=== PATIENT | male | born 1960 | race Asian ===

== ENCOUNTER 2020-11-13 21:34 | Inpatient (IN) | payer OTHER, SELFPAY ==
--- NOTE | ~2020-11-13 | CT_ITS ---
EXAMINATION: CTA chest PE protocol DATE: 11/13/2020 22:49 BUILDING COMPONENTS DESIGNER INDICATION: Covid positive. Dyspnea. TECHNIQUE: Computed tomographic angiography (CTA) of the chest was performed with 100 mL Omnipaque-35 0 intravenous contrast. The dose-length product was 246.33 mGy-cm. Maximum intensity projection 3D-re constructions of the aorta and other arteries were constructed by the technologist on a separate work station. Automated exposure control and iterative reconstruction technique were employed. COMPARISON: Chest x-ray dated 11/13/2020 FINDINGS: The study is slightly limited by motion artifact. No central pulmonary embolism. Cardiomega ly. No evidence for aneurysm or dissection. No significant pleural or pericardial effusion. Mediastin al lymphadenopathy, likely reactive. Upper abdomen is unremarkable. Patchy bilateral airspace consoli dation involving all lobes, compatible with pneumonia. There are large blebs in the mid and lower hairs g zones. IMPRESSION: 1. Extensive patchy bilateral airspace consolidation involving all lobes, compatible with pneumonia. 2: No large central pulmonary embolism. Evaluation of peripheral pulmonary arteries limited by motio n. 3: Mediastinal lymphadenopathy, likely reactive. Reviewed, dictated and finalized at location A. DING COMPONENTS DESIGNER IMPRESSION: 1. Extensive patchy bilateral airspace consolidation involving all lobes, zain tible with pneumonia. 2: No large central pulmonary embolism. Evaluation of peripheral pulmonary art eries limited by motion. 3: Mediastinal lymphadenopathy, likely reactive.
--- NOTE | ~2020-11-13 | XR_ITS ---
XR chest 1V portable 11/13/2020 22:03 Indication: Covid positive. Shortness of breath. Procedure: AP portable chest Comparison: No prior studies for comparison. Findings: There is patchy bilateral airspace disease, compatible with pneumonia. No significant effus ion. Heart size normal. No pneumothorax. No acute osseous abnormality. Impression: 1: Patchy bilateral airspace disease, compatible with pneumonia. Reviewed, dictated and finalized at location A. OTIONS FIRM ACCOUNTS MANAGER Impression: 1: Patchy bilateral airspace disease, compatible with pneumonia.
--- NOTE | 2020-11-13 21:38 | PC.NURSE ---
Pt's ride contacts: [phone]
[2020-11-13 21:41] VITALS: BP 134/82; PULSE 96; RESP 24; TEMP 37.7; O2SAT 89
--- NOTE | 2020-11-13 21:46 | ECG_ITS ---
Measurements Intervals [place] Rate: 87 P: 50 [place]: 115 QRS: 16 QRSD: 89 T: 1 QT: 360 QTc: 435 Interpretive Statements SINUS RHYTHM WITH SHORT [place] INTERVAL BORDERLINE T WAVE ABNORMALITY- INFERIOR LEADS BASELINE ARTIFACT- I, III, AVR, AVL, AVF, V4-V5 BORDERLINE ECG Electronically Signed On 11-14-2020 7:18:43 ONBOARDING SPECIALIST by Eren Sam D.O.
[2020-11-13 21:57] VITALS: BP 128/80; PULSE 89; RESP 30; TEMP 37.8; O2SAT 91
[2020-11-13 22:12] LABS: Basophils Percent Auto 0.1 % (0.2-1.2); Hematocrit 39.6 % (42.0-52.0); Hemoglobin 13.4 g/dL (14.0-18.0); Immature Granulocyte Percent A 1.4 % (0-0.5); Lymphocytes Absolute Auto 1.54 K/mm3 (0.9-3.2); Lymphocytes Percent Auto 10.8 % (18.3-44.2); Mean Corpuscular HGB Conc 33.8 g/dl (32-36); Mean Corpuscular Hemoglobin 28.3 pg (26-34); Mean Corpuscular Volume 83.7 fl (80-100); Monocytes Absolute Auto 0.8 K/mm3 (0.1-0.6); Monocytes Percent Auto 5.3 % (2.6-8.5); Neutrophils Absolute Auto 11.8 K/mm3 (1.3-6.7); Neutrophils Percent Auto 82.4 % (45.5-73.1); Platelet Count Result 265 k/mm3 (150-375); Red Blood Count 4.73 M/mm3 (4.6-6.20); Red Cell Distribution Width 13.2 % (11.5-14.5); White Blood Count 14.3 K/mm3 (4.5-10.0)
[2020-11-13 22:17] LABS: Alveolar/Arterial O2 Gradient 56.4 mmHg; Base Excess ABG 0.6 mEq/l (+/-2.0); Fractional Inspired Oxygen 21 %; HCO3 ABG 22.4 mEq/l (22.0-26.0); Oxygen Content ABG 17.3 %vol (16.0-22.0); Oxygen Saturation ABG 93.6 % (95.0-100.0); Oxyhemoglobin 91.4 % THb (90.0-100.0); PCO2 ABG 28.2 mmHg (35.0-45.0); PO2 ABG 59.6 mmHg (80.0-100.0); PO2 FiO2 Ratio Arterial Blood 2.84 %; Total Hemoglobin 13.5 g/dL (12.0-18.0)
[2020-11-13 22:18] LABS: Device ROOM AIR; Modified Allen's Test Pass; Site Drawn LEFT RADIAL; pH ABG 7.518 (7.350-7.450)
[2020-11-13 22:24] LABS: D Dimer 1.45 ug/mL (<0.48); Lactic Acid Reflex 1.8 mmol/L (0.7-2.1)
[2020-11-13 22:25] LABS: Anion Gap 3 mmol/L (8-16); Blood Urea Nitrogen 24 mg/dL (9-20); Calcium 8.4 mg/dL (8.4-10.2); Carbon Dioxide 31 mmol/L (22-30); Chloride 103 mmol/L (98-107); Estimated CRCL calculation 64 ml/min; Estimated Glomerular Filt Rate > 60; Glucose 168 mg/dL (75-110); Potassium 4.2 mmol/L (3.4-5.0); Sodium 137 mmol/L (137-145)
[2020-11-13 22:38] LABS: NT Pro B Type Natriuretic Pept 454 PG/ML (5-100); Troponin I < 0.012 ng/mL (0.000-0.034)
[2020-11-13 22:53] VITALS: BP 141/85; PULSE 97; RESP 20; O2SAT 96
[2020-11-13 23:12] VITALS: BP 129/85; PULSE 110; RESP 18; O2SAT 96
[2020-11-13] MEDS: DEXAMETHASONE SOD PHOS INJ 4 MG/ML VIAL 6 MG IV PUSH (23:27)
--- NOTE | 2020-11-13 23:34 | ED.GENADULT ---
HPI - General Adult General Chief complaint: Shortness of Breath/Dyspnea Stated complaint: Covid + SOB/ Sats in 80's Time Seen by Provider: 11/13/20 21:48 History of Present Illness HPI narrative: Patient is a 60-year-old gentleman who presents the emergency department with chief complaint of shortness of breath. Patient was diagnosed with COVID-19 approximately 10 days ago the patient states that he has been monitoring his oxygen levels at home and has noticed particular whenever he ambulates his blood oxygen levels dropped down in the upper 80s. The patient states that he feels very short of breath reports that his been treated with prednisone and also has been treated with Levaquin and Zithromax as an outpatient. The patient states that he feels as though he is not improving and has been in contact with his brother who is a physician in [place] who recommended that he come to the emergency department. Related Data Allergies Allergy/AdvReac Type Severity Reaction Status Date / Time No Known Allergies Allergy Verified 11/13/20 21:55 Review of Systems Review of Systems: Narrative: A 10 system review of systems was completed on the patient and is negative except for what is stated in the HPI. Nursing and ancillary documentation was reviewed. PMFSH Comments Patient has negative past medical history Social history the patient denies smoking Exam Narrative: Exam Narrative: GENERAL: Well-appearing, well-nourished, and in no acute distress. HEAD: Normocephalic, atraumatic. EYES: PERRLA and EOMI. ENT: Nares clear, no rhinorrhea or epistaxis. Mucous membranes moist. NECK: Supple. CHEST: Clear to auscultation. No respiratory distress. HEART: Regular rate and rhythm. No murmur heard. Normal peripheral pulses. ABDOMEN: Soft, nontender, nondistended, normal active bowel sounds. EXTREMITIES: Normal range of motion. No edema. SKIN: Warm, dry, no rash. NEURO: No focal deficits. Alert and oriented x3. PSYCH: Normal mood and affect. Course Vital Signs Vital signs: Vital Signs Temperature 37.7 C H 11/13/20 21:41 Pulse Rate 96 11/13/20 21:41 Respiratory Rate 24 H 11/13/20 21:41 Blood Pressure 134/82 11/13/20 21:41 Pulse Oximetry 89 L 11/13/20 21:41 Temperature 37.8 C H 11/13/20 21:57 Pulse Rate 110 H 11/13/20 23:12 Respiratory Rate 18 11/13/20 23:12 Blood Pressure 129/85 11/13/20 23:12 Pulse Oximetry 96 11/13/20 23:12 Medical Decision Making Vital Signs Vital Signs: Vital Signs Temperature 37.7 C H 11/13/20 21:41 Pulse Rate 96 11/13/20 21:41 Respiratory Rate 24 H 11/13/20 21:41 Blood Pressure 134/82 11/13/20 21:41 Pulse Oximetry 89 L 11/13/20 21:41 Temperature 37.8 C H 11/13/20 21:57 Pulse Rate 110 H 11/13/20 23:12 Respiratory Rate 18 11/13/20 23:12 Blood Pressure 129/85 11/13/20 23:12 Pulse Oximetry 96 11/13/20 23:12 Lab Data Result diagrams: 11/13/20 22:02 11/13/20 22:02 Labs: Lab Results 11/13/20 11/13/20 11/13/20 Range/Units 22:02 22:02 22:02 WBC 14.3 H (4.5-10.0) K/mm3 RBC 4.73 (4.6-6.20) M/mm3 Hgb 13.4 L (14.0-18.0) g/dL Hct 39.6 L (42.0-52.0) % MCV 83.7 (80-100) fl MCH 28.3 (26-34) pg MCHC 33.8 (32-36) g/dl RDW 13.2 (11.5-14.5) % Plt Count 265 (150-375) k/mm3 MPV 10.0 (7.4-10.4) fl Immature Gran % (Auto) 1.4 H (0-0.5) % Neut % (Auto) 82.4 H (45.5-73.1) % Lymph % (Auto) 10.8 L (18.3-44.2) % Wilkin % (Auto) 5.3 (2.6-8.5) % Eos % (Auto) 0.0 (0-4.4) % Baso % (Auto) 0.1 L (0.2-1.2) % Lymph # (Auto) 1.54 (0.9-3.2) K/mm3 Wilkin # (Auto) 0.8 H (0.1-0.6) K/mm3 Eos # (Auto) 0.0 (0-0.3) K/mm3 Baso # (Auto) 0.0 (0.0-0.1) K/mm3 Abs Immat Gran (auto) 0.20 H (0.00-0.031) K/mm3 Absolute Neuts (auto) 11.8 H (1.3-6.7) K/mm3 Absolute Nucleated RBC 0.0 (0.0-0.012) K/mm3 Nucleated RBC % 0.0 (0.0-0.2)
[2020-11-14] VITALS (14 sets, daily range): BP systolic 111–131; BP diastolic 53–80; PULSE 62–97; RESP 16–22; TEMP 36.5–37.6; O2SAT 91–97; BMI 25.9
[2020-11-14] MEDS: ENOXAPARIN 80 MG/0.8 ML SYRINGE 75 MG SUB-Q ×3 (00:01→20:01)
--- NOTE | 2020-11-14 00:33 | ADMGEN ---
This patient, Zhen Samuel, was admitted to [facility] Surg Room 328-01. Patient/family oriented to hospital policies and general routines including ID bracelet, bed and alarms, visiting hours, pain management, procedures, bathroom and other care routines, personal items, smoking policy, room service/diet, and visiting hours. Information on how to activate the Rapid Response Team has been discussed. Patient/Family are encouraged to report perceived risks to care and to ask questions if they do not understand what they are told or what they should do.
--- NOTE | 2020-11-14 00:44 | PM.IMHP ---
H&P: HPI History of Present Illness Date/Time: 11/14/20 00:44 Chief Complaint: Exertional shortness of breath++ Narrative: This is a 60 year old male who is known to normally be healthy and presented to the hospital with a complaint of exertional shortness of breath. He was diagnosed with COVID-19 ten days ago and has been taking oral steroids, oral antibiotics, and mucinex. He denies any fevers, chest pain, abdominal pain, dysuria, diarrhea, rectal bleeding or dysuria. He has had a sporadic dry cough. The patient was evaluated in the ER tonight and found to be hypoxemic on his ABG. He was placed on a 2L of oxygen and currently is saturating 97%. He was also treated with bronchodilators and decadron in the ER tonight. We have been asked to admit him to the hospital for further care. No other complaints. Review of Systems Review of Systems: All systems reviewed & are unremarkable except as noted in HPI and below PMFSH Social History Social History Smoking status: Never smoker Second hand tobacco smoke exposure: No Alcohol intake: never Substance use: never Gender identity (if verbalized by the patient): Male Sexual Orientation (if Verbalized by the Patient): Straight or Heterosexual Spiritual care concerns: No Meds Home Medications and Allergies Home Medications Medication Instructions Recorded Confirmed Type Mucinex DM 1,200 mg PO BID 11/14/20 11/14/20 History albuterol sulfate 2 puff INHALATION PRN 11/14/20 11/14/20 History azithromycin 250 mg PO DAILY 11/14/20 11/14/20 History doxazosin 4 mg PO DAILY 11/14/20 11/14/20 History methylprednisolone 10 mg PO DAILY 11/14/20 11/14/20 History oseltamivir 75 mg PO BID 11/14/20 11/14/20 History Allergies Allergy/AdvReac Type Severity Reaction Status Date / Time No Known Allergies Allergy Verified 11/13/20 21:55 Vital Signs Vital Signs - 24 hr 11/13/20 21:41 11/13/20 21:57 11/13/20 22:53 Temperature 37.7 C H 37.8 C H Pulse Rate 96 89 97 Respiratory Rate 24 H 30 H 20 Blood Pressure 134/82 128/80 141/85 H Pulse Oximetry 89 L 91 96 11/13/20 23:12 11/14/20 00:06 11/14/20 00:32 Temperature 37.6 C H Pulse Rate 110 H 84 77 Respiratory Rate 18 18 20 Blood Pressure 129/85 122/80 129/74 Pulse Oximetry 96 97 94 Exam Const: General: cooperative, no acute distress, alert, awake and other (On 2 L of oxygen via [place]) Nutritional Appearance: well nourished Orientation/consciousness: patient oriented x3 HENMT: Head: normal to inspection General nose exam: Normal external nose present Face and sinus: normal facial exam Mouth: Yes Normal oral and palatal mucosa present and Yes oropharynx normal Eyes: Pupils: Equal, round and reactive pupils present EOM: EOMs intact bilaterally Neck: Neck: supple and no JVD Thyroid: thyroid normal Lymphatic: lymphadenopathy not noted Resp: Effort & Inspection: normal respiratory effort Auscultation: crackles and diminished lung sounds Cardio: Rate: regular rate Rhythm: regular rhythm Heart sounds: no murmurs GI: Inspection: normal to inspection Auscultation: normal bowel sounds Skin: General skin exam: normal color and no rashes or lesions noted Neuro: General: patient oriented x3 Cranial nerves: Yes CN's II-XII intact bilaterally and Yes Equal, round and reactive pupils present Speech: normal speech Motor exam (neuro): 5/5 motor strength present throughout Sensory Exam: normal sensation Extrem: General: normal to inspection and no edema Psych: Mental Status: mental status grossly normal Affect: normal affect H&P: Results Labs Labs: Short CBC 11/13/20 Range/Units 22:02 WBC 14.3 H (4.5-10.0) K/mm3 Hgb 13.4 L (14.0-18.0) g/dL Hct 39.6 L (42.0-52.0) % Plt Count 265 (150-375) k/mm3 BMP 11/13/20 22:02 Sodium 137 Potassium 4.2 Chloride 103 Carbon Dioxide 31 H BUN 24 H Creatinine 1.00 Glucose 168 H Calcium 8.4 Cardiac Enzymes 11/13/20 Range/
[2020-11-14] MEDS: SODIUM CHLORIDE 0.9% IV 1,000 ML 125 ML IV CONT ×2 (01:42→09:44)
[2020-11-14] MEDS: ALBUTEROL SULFATE (*SP) AEROSOL 1 PUFF 2 PUFF INHALATION ×4 (03:12→20:01)
[2020-11-14 07:00] LABS: Basophils Percent Auto 0.2 % (0.2-1.2); Hematocrit 34.9 % (42.0-52.0); Hemoglobin 11.9 g/dL (14.0-18.0); Immature Granulocyte Absolute 0.12 K/mm3 (0.00-0.031); Immature Granulocyte Percent A 1.2 % (0-0.5); Lymphocytes Absolute Auto 0.78 K/mm3 (0.9-3.2); Lymphocytes Percent Auto 8.1 % (18.3-44.2); Mean Corpuscular HGB Conc 34.1 g/dl (32-36); Mean Corpuscular Hemoglobin 28.1 pg (26-34); Mean Corpuscular Volume 82.3 fl (80-100); Mean Platelet Volume 9.9 fl (7.4-10.4); Monocytes Absolute Auto 0.3 K/mm3 (0.1-0.6); Monocytes Percent Auto 3.5 % (2.6-8.5); Neutrophils Absolute Auto 8.4 K/mm3 (1.3-6.7); Platelet Count Result 255 k/mm3 (150-375); Red Blood Count 4.24 M/mm3 (4.6-6.20); Red Cell Distribution Width 13.2 % (11.5-14.5); White Blood Count 9.7 K/mm3 (4.5-10.0)
[2020-11-14 07:07] LABS: Hemoglobin A1C 5.9 % (<5.7)
[2020-11-14 07:10] LABS: Anion Gap 3 mmol/L (8-16); Blood Urea Nitrogen 20 mg/dL (9-20); Calcium 7.8 mg/dL (8.4-10.2); Carbon Dioxide 28 mmol/L (22-30); Chloride 107 mmol/L (98-107); Estimated CRCL calculation 72 ml/min; Estimated Glomerular Filt Rate > 60; Glucose 187 mg/dL (75-110); Potassium 4.5 mmol/L (3.4-5.0); Sodium 138 mmol/L (137-145)
[2020-11-14] MEDS: DEXAMETHASONE SOD PHOS INJ 4 MG/ML VIAL 6 MG IV PUSH (08:31)
--- NOTE | 2020-11-14 15:09 | PM.IMPN ---
Progress Note: A&P Assessment and Plan (1) Pneumonia due to 2019-nCoV: Code(s): U07.1 - COVID-19; J12.82 - Pneumonia due to coronavirus disease 2019 Status: Acute Assessment and Plan: on decadron. will check his lft and start remdesivir. contineu bronchodilator.s check procalcitonin levele. he has finished a course of levaquin and also was doign azithromycin. will hold off any antibiotics unless procalcitonin is high. (2) Hypoxemia: Code(s): R09.02 - Hypoxemia Status: Acute Assessment and Plan: Continue oxygen supplementation and wean off as tolerated. Continuous pulse oximetry. (3) Leukocytosis: Qualifiers: Leukocytosis type: unspecified Qualified Code(s): D72.829 - Elevated white blood cell count, unspecified Code(s): D72.829 - Elevated white blood cell count, unspecified Status: Acute Assessment and Plan: Likely secondary to COVID-19 infection. Monitor CBCd. (4) Anemia: Qualifiers: Anemia type: unspecified type Qualified Code(s): D64.9 - Anemia, unspecified Code(s): D64.9 - Anemia, unspecified Status: Acute Assessment and Plan: r/o chronic anemia. No signs of acute blood loss. Monitor H/H, transfuse prn. (5) Abnormal glucose: Code(s): R73.09 - Other abnormal glucose Status: Acute Assessment and Plan: Likely secondary to recent steroid use. r/o diabetes mellitus. a1c 5.9 Subjective Date/time seen: 11/14/20 15:09 Interval history: he feels okay. oxygen saturation on 2l oxygen has been good. minimal couhg. no nausea, vomting. fever, chlls. sob on exertion. Review of Systems Constitutional: Constitutional: Reports fatigue and Reports weakness Eyes: Eyes: Denies blurry vision and Denies photophobia ENT: Denies epistaxis and Denies nasal congestion Cardiovascular: Cardiovascular: Denies chest pain and Denies palpitations Respiratory: Respiratory: Reports cough, Denies hemoptysis, Reports dyspnea and Reports dyspnea on exertion Gastrointestinal: Gastrointestinal: Denies abdominal pain, Denies bloating, Denies heartburn, Denies diarrhea and Denies nausea Genitourinary: Genitourinary: Denies dysuria and Denies urinary frequency Musculoskeletal: Musculoskeletal: Denies back pain and Denies neck pain Integumentary/Breasts: Skin/Breast: Denies dry skin and Denies rash Neurologic: Denies Abnormal speech present and Denies abnormal gait Psychiatric: Psychiatric: Denies anxiety and Denies behavioral changes Exam Const: General: cooperative, no acute distress, alert, awake and other (On 2 L of oxygen via [place]) Nutritional Appearance: well nourished Orientation/consciousness: patient oriented x3 HENMT: Head: normal to inspection General nose exam: Normal external nose present Face and sinus: normal facial exam Mouth: Yes Normal oral and palatal mucosa present and Yes oropharynx normal Eyes: Pupils: Equal, round and reactive pupils present EOM: EOMs intact bilaterally Neck: Neck: supple and no JVD Thyroid: thyroid normal Lymphatic: lymphadenopathy not noted Resp: Effort & Inspection: normal respiratory effort Auscultation: crackles and diminished lung sounds Cardio: Rate: regular rate Rhythm: regular rhythm Heart sounds: no murmurs GI: Inspection: normal to inspection Auscultation: normal bowel sounds Skin: General skin exam: normal color and no rashes or lesions noted Neuro: General: patient oriented x3 Cranial nerves: Yes CN's II-XII intact bilaterally and Yes Equal, round and reactive pupils present Speech: normal speech Motor exam (neuro): 5/5 motor strength present throughout Sensory Exam: normal sensation Extrem: General: normal to inspection and no edema Psych: Mental Status: mental status grossly normal Affect: normal affect Objective Data Vital Signs Vital Signs: Vital Signs - 24 hr 11/13/20 21:41 11/13/20 21:57 11/13/20 22:53 Temperature 99.8 F H 100.1
[2020-11-14 16:10] LABS: Alanine Aminotransferase 106 U/L (4-50); Estimated CRCL calculation 80 ml/min; Estimated Glomerular Filt Rate > 60
[2020-11-14 16:11] LABS: Alanine Aminotransferase 106 U/L (4-50); Albumin Level 3.3 g/dL (3.5-5.1); Alkaline Phosphatase 82 U/L (38-126); Aspartate Amino Transferase 54 U/L (17-59); Bilirubin,Total 0.4 mg/dL (0.2-1.3)
[2020-11-14] MEDS: REMDESIVIR 200 MG/NS 250 ML 200 MG/250 ML BAG 250 MG IVPB (17:04)
[2020-11-14] MEDS: DOXAZOSIN MESYLATE 4 MG TABLET PO (18:43)
[2020-11-14] MEDS: guaiFENesin 12 HR 600 MG TABCR 1200 MG PO (20:02)
[2020-11-15] MEDS: ALBUTEROL SULFATE (*SP) AEROSOL 1 PUFF 2 PUFF INHALATION ×4 (03:18→19:57)
--- NOTE | 2020-11-15 04:26 | PC.NURSE ---
Daylight Savings Time For Daylight Savings Time Ending in the Fall - Clocks are moved back. For Daylight Savings Time Beginning in the Spring - Clocks are moved ahead. For [facility], the time of change occurs at 0200 hrs. Time is taken from the banquet server on call. This entry on the patient's chart recognizes the change in time reflected during documentation. Example: 2 entries for vital signs may be charted for 0200 hrs.
[2020-11-15 05:00] VITALS: BP 124/81; PULSE 69; RESP 20; TEMP 36.5; O2SAT 93
[2020-11-15 06:28] LABS: Alanine Aminotransferase 95 U/L (4-50); Albumin Level 2.9 g/dL (3.5-5.1); Alkaline Phosphatase 63 U/L (38-126); Anion Gap 2 mmol/L (8-16); Aspartate Amino Transferase 41 U/L (17-59); Bilirubin,Total 0.3 mg/dL (0.2-1.3); Blood Urea Nitrogen 20 mg/dL (9-20); Calcium 8.1 mg/dL (8.4-10.2); Carbon Dioxide 27 mmol/L (22-30); Chloride 109 mmol/L (98-107); Estimated CRCL calculation 72 ml/min; Estimated Glomerular Filt Rate > 60; Glucose 119 mg/dL (75-110); Potassium 3.8 mmol/L (3.4-5.0); Sodium 138 mmol/L (137-145)
[2020-11-15 06:46] LABS: Basophils Percent Auto 0.3 % (0.2-1.2); Hematocrit 35.4 % (42.0-52.0); Hemoglobin 11.9 g/dL (14.0-18.0); Immature Granulocyte Absolute 0.26 K/mm3 (0.00-0.031); Immature Granulocyte Percent A 2.5 % (0-0.5); Lymphocytes Absolute Auto 1.75 K/mm3 (0.9-3.2); Lymphocytes Percent Auto 16.6 % (18.3-44.2); Mean Corpuscular HGB Conc 33.6 g/dl (32-36); Mean Corpuscular Hemoglobin 28.4 pg (26-34); Mean Corpuscular Volume 84.5 fl (80-100); Monocytes Absolute Auto 0.9 K/mm3 (0.1-0.6); Monocytes Percent Auto 8.6 % (2.6-8.5); Neutrophils Absolute Auto 7.6 K/mm3 (1.3-6.7); Platelet Count Result 283 k/mm3 (150-375); Red Blood Count 4.19 M/mm3 (4.6-6.20); Red Cell Distribution Width 13.3 % (11.5-14.5); White Blood Count 10.5 K/mm3 (4.5-10.0)
[2020-11-15 06:56] LABS: Platelet Estimate Adequate (Adequate); Tear Drop Cells 2+ (NORMAL)
[2020-11-15 08:00] VITALS: BP 132/86; PULSE 74; RESP 18; TEMP 36.6; O2SAT 97
[2020-11-15] MEDS: DEXAMETHASONE SOD PHOS INJ 4 MG/ML VIAL 6 MG IV PUSH (08:05)
[2020-11-15] MEDS: ENOXAPARIN 80 MG/0.8 ML SYRINGE 75 MG SUB-Q ×2 (08:05→20:22)
[2020-11-15] MEDS: guaiFENesin 12 HR 600 MG TABCR 1200 MG PO ×2 (08:05→20:22)
[2020-11-15 12:00] VITALS: BP 119/73; PULSE 94; RESP 22; TEMP 36.3; O2SAT 93
[2020-11-15 16:00] VITALS: BP 139/83; PULSE 87; RESP 20; TEMP 36.6; O2SAT 96
--- NOTE | 2020-11-15 16:33 | PM.IMPN ---
Progress Note: A&P Assessment and Plan (1) Pneumonia due to 2019-nCoV: Code(s): U07.1 - COVID-19; J12.82 - Pneumonia due to coronavirus disease 2019 Status: Acute Assessment and Plan: On Remdesivir and Dexamethasone Improved (2) Hypoxemia: Code(s): R09.02 - Hypoxemia Status: Acute Assessment and Plan: On room air Continue to monitor (3) Leukocytosis: Qualifiers: Leukocytosis type: unspecified Qualified Code(s): D72.829 - Elevated white blood cell count, unspecified Code(s): D72.829 - Elevated white blood cell count, unspecified Status: Acute Assessment and Plan: Will monitor Labs in am (4) Chronic anemia: Code(s): D64.9 - Anemia, unspecified Status: Acute Assessment and Plan: Follow up in the outpatient setting. (5) Abnormal glucose: Code(s): R73.09 - Other abnormal glucose Status: Acute Assessment and Plan: Likely secondary to systemic steroid. Subjective Date/time seen: 11/15/20 16:33 States that he is feeling much better. Review of Systems Review of Systems: Narrative: sob, general malaise. Constitutional: Comments: chills Cardiovascular: Comments: no leg swelling, no chest pain. Respiratory: Comments: sob. Gastrointestinal: Comments: no n/v/abdominal pain. Musculoskeletal: Comments: no muscle pain. Integumentary/Breasts: Comments: no rashes Neurologic: Comments: no sensory motor deficit Exam Narrative: Exam Narrative: Lying in bed Const: General: comfortable, no acute distress, alert, awake and Physically active Nutritional Appearance: average body habitus Orientation/consciousness: patient oriented x3 HENMT: Head: normal to inspection and normocephalic Ears: hearing grossly normal bilaterally General nose exam: Normal external nose present Face and sinus: normal facial exam Eyes: General: appearance normal, both eyes and all related structures Pupils: Equal, round and reactive pupils present EOM: EOMs intact bilaterally Neck: Neck: no lymphadenopathy, supple and no JVD Resp: Effort & Inspection: normal respiratory effort and able to speak in complete sentences Auscultation: crackles bilateral at the base Cardio: Jugular venous distension: no JVD Rate: regular rate Rhythm: regular rhythm GI: GI Palp: Yes Soft to palpation and Yes No hepatosplenomegaly present Skin: Rashes: no rashes Neuro: General: patient oriented x3 and CN's II-XI intact bilaterally Cranial nerves: Yes CN's II-XII intact bilaterally and Yes Equal, round and reactive pupils present Cognition (Neuro): normal cognition Motor exam (neuro): 5/5 motor strength present throughout Extrem: General: no pedal edema Objective Data Vital Signs Vital Signs: Vital Signs - 24 hr 11/14/20 16:00 11/14/20 20:00 11/14/20 21:49 Temperature 97.8 F 98.0 F Pulse Rate 97 83 Respiratory Rate 20 20 Blood Pressure 119/68 119/53 L Pulse Oximetry 91 95 92 11/14/20 23:46 11/15/20 05:00 11/15/20 08:00 Temperature 97.8 F 97.7 F 97.8 F Pulse Rate 71 69 74 Respiratory Rate 20 20 18 Blood Pressure 123/76 124/81 132/86 Pulse Oximetry 95 93 97 11/15/20 12:00 11/15/20 16:00 Temperature 97.4 F L 97.8 F Pulse Rate 94 87 Respiratory Rate 22 H 20 Blood Pressure 119/73 139/83 Pulse Oximetry 93 96 Intake/Output Intake/Output: Intake & Output 11/12/20 11/13/20 11/14/20 11/16/20 23:59 23:59 23:59 00:59 Intake Total 2490 1240 Output Total 1830 550 Balance 660 690 Meds/Results Medications: Active Medications Generic Name Dose Route Start Last Admin Trade Name Freq PRN Reason Stop Dose Admin Albuterol 2 puff 11/14/20 02:00 11/15/20 14:44 Albuterol Sulfate (*Sp) Aerosol 1 Puff INHALATION 2 puff Q6HRT ERIC Administration Albuterol 2 puff 11/14/20 00:42 Albuterol Sulfate (*Sp) Aerosol 1 Puff INHALATION Q6HRT PRN Shortness Of Breath Dexamethasone Sodium Phosph
[2020-11-15] MEDS: DOXAZOSIN MESYLATE 4 MG TABLET PO (17:51)
[2020-11-15 20:00] VITALS: BP 127/75; PULSE 88; RESP 18; TEMP 36.6; O2SAT 96
[2020-11-15] MEDS: REMDESIVIR 100 MG/NS 250 ML 100 MG/250 ML BAG 250 MG IVPB (22:11)
[2020-11-16] VITALS (7 sets, daily range): BP systolic 113–138; BP diastolic 68–84; PULSE 64–79; RESP 16–20; TEMP 36.4–37.1; O2SAT 93–97
[2020-11-16] MEDS: ALBUTEROL SULFATE (*SP) AEROSOL 1 PUFF 2 PUFF INHALATION ×4 (02:10→22:47)
[2020-11-16 06:19] LABS: Alanine Aminotransferase 94 U/L (4-50); Estimated CRCL calculation 72 ml/min; Estimated Glomerular Filt Rate > 60
[2020-11-16] MEDS: DEXAMETHASONE SOD PHOS INJ 4 MG/ML VIAL 6 MG IV PUSH (08:28)
[2020-11-16] MEDS: guaiFENesin 12 HR 600 MG TABCR 1200 MG PO ×2 (08:28→21:31)
[2020-11-16] MEDS: ENOXAPARIN 80 MG/0.8 ML SYRINGE 75 MG SUB-Q ×2 (08:28→21:30)
--- NOTE | 2020-11-16 17:18 | PM.IMPN ---
Progress Note: A&P Assessment and Plan (1) Pneumonia due to 2019-nCoV: Code(s): U07.1 - COVID-19; J12.82 - Pneumonia due to coronavirus disease 2019 Status: Acute Assessment and Plan: On Remdesivir and Dexamethasone No signs of worsening (2) Hypoxemia: Code(s): R09.02 - Hypoxemia Status: Acute Assessment and Plan: On room air (3) Abnormal glucose: Code(s): R73.09 - Other abnormal glucose Status: Acute Assessment and Plan: Likely secondary to systemic steroids. (4) Leukocytosis: Qualifiers: Leukocytosis type: unspecified Qualified Code(s): D72.829 - Elevated white blood cell count, unspecified Code(s): D72.829 - Elevated white blood cell count, unspecified Status: Acute Assessment and Plan: Will trend CBC in am (5) Chronic anemia: Code(s): D64.9 - Anemia, unspecified Status: Acute Assessment and Plan: Follow up in the outpatient setting. Subjective Date/time seen: 11/16/20 17:18 States that he feels much better today. Review of Systems Review of Systems: Narrative: no new issues overnight. Exam Narrative: Exam Narrative: Lying in bed Const: General: comfortable, alert, awake and Physically active Nutritional Appearance: well nourished Orientation/consciousness: patient oriented x3 HENMT: Head: normal to inspection and normocephalic Ears: hearing grossly normal bilaterally General nose exam: Normal external nose present Face and sinus: normal facial exam Eyes: General: appearance normal, both eyes and all related structures Pupils: Equal, round and reactive pupils present EOM: EOMs intact bilaterally Neck: Neck: no lymphadenopathy, supple and no JVD Resp: Auscultation: crackles bilateral at the base Cardio: Jugular venous distension: no JVD Rate: regular rate Rhythm: regular rhythm GI: GI Palp: Yes Soft to palpation and Yes No hepatosplenomegaly present Skin: Rashes: no rashes Neuro: General: patient oriented x3 and CN's II-XI intact bilaterally Cranial nerves: Yes CN's II-XII intact bilaterally and Yes Equal, round and reactive pupils present Cognition (Neuro): normal cognition Speech: normal speech Motor exam (neuro): 5/5 motor strength present throughout Extrem: General: no pedal edema Objective Data Vital Signs Vital Signs: Vital Signs - 24 hr 11/15/20 20:00 11/16/20 00:00 11/16/20 04:00 Temperature 97.9 F 98.7 F 98.6 F Pulse Rate 88 64 70 Respiratory Rate 18 18 16 Blood Pressure 127/75 138/79 117/84 Pulse Oximetry 96 96 94 11/16/20 08:00 11/16/20 08:36 11/16/20 14:00 Temperature 98.1 F 98.1 F Pulse Rate 64 79 Respiratory Rate 16 16 Blood Pressure 127/76 113/68 Pulse Oximetry 96 93 97 Intake/Output Intake/Output: Intake & Output 11/13/20 11/14/20 11/15/20 11/16/20 22:59 22:59 23:59 23:59 Intake Total 640 Output Total 300 Balance 340 Meds/Results Medications: Active Medications Generic Name Dose Route Start Last Admin Trade Name Freq PRN Reason Stop Dose Admin Albuterol 2 puff 11/14/20 02:00 11/16/20 15:08 Albuterol Sulfate (*Sp) Aerosol 1 Puff INHALATION 2 puff Q6HRT ERIC Administration Albuterol 2 puff 11/14/20 00:42 Albuterol Sulfate (*Sp) Aerosol 1 Puff INHALATION Q6HRT PRN Shortness Of Breath Dexamethasone Sodium Phosphate 6 mg 11/14/20 09:00 11/16/20 08:28 Dexamethasone Sod Phos Inj 4 Mg/Ml Vial IV PUSH 11/23/20 09:01 6 mg DAILY ERIC Administration Doxazosin Mesylate 4 mg 11/14/20 18:00 11/15/20 17:51 Doxazosin Mesylate 4 Mg Tablet PO 4 mg 1800 ERIC Administration Enoxaparin Sodium 75 mg 11/13/20 23:55 11/16/20 08:28 Enoxaparin 80 Mg/0.8 Ml Syringe SUB-Q 75 mg Q12HR ERIC Administration Guaifenesin 1,200 mg 11/14/20 21:00 11/16/20 08:28 Guaifenesin 12 Hr 600 Mg Tabcr PO 1,200 mg Q12HR ERIC Administration Remdesivir 100 mg in 250 mls @ 250 mls/hr 03
[2020-11-16] MEDS: DOXAZOSIN MESYLATE 4 MG TABLET PO (18:15)
[2020-11-16] MEDS: REMDESIVIR 100 MG/NS 250 ML 100 MG/250 ML BAG 250 MG IVPB (21:33)
[2020-11-17 05:52] VITALS: BP 129/83; PULSE 66; RESP 20; TEMP 37; O2SAT 97
[2020-11-17 06:20] LABS: Basophils Percent Auto 0.5 % (0.2-1.2); Eosinophils Percent Auto 0.4 % (0-4.4); Hematocrit 34.7 % (42.0-52.0); Hemoglobin 11.7 g/dL (14.0-18.0); Immature Granulocyte Absolute 0.28 K/mm3 (0.00-0.031); Immature Granulocyte Percent A 3.4 % (0-0.5); Lymphocytes Absolute Auto 2.45 K/mm3 (0.9-3.2); Lymphocytes Percent Auto 30.1 % (18.3-44.2); Mean Corpuscular HGB Conc 33.7 g/dl (32-36); Mean Corpuscular Hemoglobin 27.7 pg (26-34); Mean Platelet Volume 9.5 fl (7.4-10.4); Monocytes Absolute Auto 0.8 K/mm3 (0.1-0.6); Monocytes Percent Auto 9.5 % (2.6-8.5); Neutrophils Absolute Auto 4.6 K/mm3 (1.3-6.7); Neutrophils Percent Auto 56.1 % (45.5-73.1); Platelet Count Result 322 k/mm3 (150-375); Red Blood Count 4.23 M/mm3 (4.6-6.20); Red Cell Distribution Width 13.2 % (11.5-14.5); White Blood Count 8.1 K/mm3 (4.5-10.0)
[2020-11-17] MEDS: ALBUTEROL SULFATE (*SP) AEROSOL 1 PUFF 2 PUFF INHALATION ×4 (06:22→21:29)
[2020-11-17 06:33] LABS: Alanine Aminotransferase 147 U/L (4-50); Anion Gap 4 mmol/L (8-16); Blood Urea Nitrogen 22 mg/dL (9-20); Calcium 7.9 mg/dL (8.4-10.2); Carbon Dioxide 27 mmol/L (22-30); Chloride 105 mmol/L (98-107); Estimated CRCL calculation 72 ml/min; Estimated Glomerular Filt Rate > 60; Glucose 89 mg/dL (75-110); Potassium 3.6 mmol/L (3.4-5.0); Sodium 136 mmol/L (137-145)
[2020-11-17 07:06] LABS: Platelet Estimate Adequate (Adequate); Poikilocytosis 1+ (NORMAL)
[2020-11-17] MEDS: DEXAMETHASONE SOD PHOS INJ 4 MG/ML VIAL 6 MG IV PUSH (08:31)
[2020-11-17] MEDS: ENOXAPARIN 80 MG/0.8 ML SYRINGE 75 MG SUB-Q ×2 (08:31→21:28)
[2020-11-17] MEDS: guaiFENesin 12 HR 600 MG TABCR 1200 MG PO ×2 (08:31→21:29)
[2020-11-17 14:00] VITALS: BP 109/67; PULSE 77; RESP 20; TEMP 36.3; O2SAT 96
--- NOTE | 2020-11-17 16:10 | PM.IMPN ---
Progress Note: A&P Assessment and Plan (1) Pneumonia due to 2019-nCoV: Code(s): U07.1 - COVID-19; J12.82 - Pneumonia due to coronavirus disease 2019 Status: Acute Assessment and Plan: On Remdesivir and Dexamethasone (2) Chronic anemia: Code(s): D64.9 - Anemia, unspecified Status: Acute Assessment and Plan: Follow up in the outpatient setting. (3) Leukocytosis: Qualifiers: Leukocytosis type: unspecified Qualified Code(s): D72.829 - Elevated white blood cell count, unspecified Code(s): D72.829 - Elevated white blood cell count, unspecified Status: Acute Assessment and Plan: Resolved. (4) Hypoxemia: Code(s): R09.02 - Hypoxemia Status: Acute Assessment and Plan: Resolved On Room air Subjective Date/time seen: 11/17/20 16:10 Patient states that she feels very weak. Review of Systems Review of Systems: Narrative: Patient states that she feels very weak for several days. ROS unobtainable: Yes unobtainable due to medical condition (Poor historian) Constitutional: Constitutional: Reports chills Comments: fevers, chills, Cardiovascular: Comments: no chest pain, no sob, no leg swelling. Respiratory: Comments: cough, no sputum production. Gastrointestinal: Comments: no n/v/abdominal pain/diarrhea Genitourinary: Comments: pain and burning with urination. Musculoskeletal: Comments: no muscle aches or pains, no joint enlargement Integumentary/Breasts: Comments: no rashes. Neurologic: Comments: no sensory motor deficit Exam Narrative: Exam Narrative: Sitting in bed. Const: General: comfortable, no acute distress, alert, awake, Physically active and ill appearing Nutritional Appearance: well nourished Orientation/consciousness: patient oriented x3 HENMT: Head: normal to inspection and normocephalic Ears: hearing grossly normal bilaterally General nose exam: Normal external nose present Face and sinus: normal facial exam Eyes: General: appearance normal, both eyes and all related structures Pupils: Equal, round and reactive pupils present EOM: EOMs intact bilaterally Neck: Neck: no lymphadenopathy, supple and no JVD Resp: Effort & Inspection: normal respiratory effort and able to speak in complete sentences Auscultation: crackles bilateral Cardio: Jugular venous distension: no JVD Rate: regular rate Rhythm: regular rhythm GI: GI Palp: Yes Soft to palpation and Yes No hepatosplenomegaly present Skin: Rashes: no rashes Neuro: General: patient oriented x3 and CN's II-XI intact bilaterally Cranial nerves: Yes CN's II-XII intact bilaterally and Yes Equal, round and reactive pupils present Cognition (Neuro): normal cognition Speech: normal speech Gait exam (Neuro): Normal gait present Motor exam (neuro): 5/5 motor strength present throughout Extrem: General: no pedal edema Objective Data Vital Signs Vital Signs: Vital Signs - 24 hr 11/16/20 20:50 11/16/20 21:56 11/17/20 05:52 Temperature 97.6 F 98.6 F Pulse Rate 64 64 66 Respiratory Rate 20 20 20 Blood Pressure 128/77 129/83 Pulse Oximetry 95 95 97 11/17/20 14:00 Temperature 97.4 F L Pulse Rate 77 Respiratory Rate 20 Blood Pressure 109/67 Pulse Oximetry 96 Intake/Output Intake/Output: Intake & Output 11/14/20 11/15/20 11/16/20 11/17/20 22:59 23:59 23:59 23:59 Intake Total 940 980 Output Total 300 Balance 640 980 Meds/Results Medications: Active Medications Generic Name Dose Route Start Last Admin Trade Name Freq PRN Reason Stop Dose Admin Albuterol 2 puff 11/14/20 02:00 11/17/20 14:34 Albuterol Sulfate (*Sp) Aerosol 1 Puff INHALATION 2 puff Q6HRT ERIC Administration Albuterol 2 puff 11/14/20 00:42 Albuterol Sulfate (*Sp) Aerosol 1 Puff INHALATION Q6HRT PRN Shortness Of Breath Dexamethasone Sodium Phosphate 6 mg 11/14/20 09:00 11/17/20 08:31 Dexamethasone Sod Phos Inj 4 Mg/Ml Vial
[2020-11-17] MEDS: DOXAZOSIN MESYLATE 4 MG TABLET PO (17:34)
[2020-11-17] MEDS: REMDESIVIR 100 MG/NS 250 ML 100 MG/250 ML BAG 250 MG IVPB (21:28)
[2020-11-17 22:00] VITALS: BP 106/66; PULSE 93; RESP 16; TEMP 36.1; O2SAT 96
[2020-11-18] MEDS: ALBUTEROL SULFATE (*SP) AEROSOL 1 PUFF 2 PUFF INHALATION ×4 (02:30→21:26)
[2020-11-18 06:00] VITALS: BP 112/72; PULSE 71; RESP 18; TEMP 36.6; O2SAT 96
[2020-11-18 06:22] LABS: Basophils Percent Auto 0.3 % (0.2-1.2); Eosinophils Absolute Auto 0.1 K/mm3 (0-0.3); Eosinophils Percent Auto 1.2 % (0-4.4); Hematocrit 35.5 % (42.0-52.0); Hemoglobin 11.9 g/dL (14.0-18.0); Immature Granulocyte Absolute 0.36 K/mm3 (0.00-0.031); Immature Granulocyte Percent A 4.1 % (0-0.5); Lymphocytes Absolute Auto 2.37 K/mm3 (0.9-3.2); Lymphocytes Percent Auto 26.8 % (18.3-44.2); Mean Corpuscular HGB Conc 33.5 g/dl (32-36); Mean Corpuscular Hemoglobin 28.3 pg (26-34); Mean Corpuscular Volume 84.3 fl (80-100); Mean Platelet Volume 9.5 fl (7.4-10.4); Monocytes Absolute Auto 0.7 K/mm3 (0.1-0.6); Monocytes Percent Auto 7.8 % (2.6-8.5); Neutrophils Absolute Auto 5.3 K/mm3 (1.3-6.7); Neutrophils Percent Auto 59.8 % (45.5-73.1); Platelet Count Result 314 k/mm3 (150-375); Red Blood Count 4.21 M/mm3 (4.6-6.20); Red Cell Distribution Width 13.4 % (11.5-14.5); White Blood Count 8.8 K/mm3 (4.5-10.0)
[2020-11-18 06:28] LABS: Alanine Aminotransferase 132 U/L (4-50); Anion Gap 4 mmol/L (8-16); Blood Urea Nitrogen 22 mg/dL (9-20); Calcium 7.5 mg/dL (8.4-10.2); Carbon Dioxide 27 mmol/L (22-30); Chloride 107 mmol/L (98-107); Estimated CRCL calculation 80 ml/min; Estimated Glomerular Filt Rate > 60; Glucose 112 mg/dL (75-110); Potassium 3.4 mmol/L (3.4-5.0); Sodium 138 mmol/L (137-145)
--- NOTE | 2020-11-18 08:07 | PM.IMPN ---
Progress Note: A&P Additional Plan 1. COVID-19 pneumonia: Improved Subjective Date/time seen: 11/18/20 08:07 Review of Systems Review of Systems: All systems reviewed & are unremarkable except as noted in HPI and below Constitutional: Constitutional: Reports daytime sleepiness Cardiovascular: Cardiovascular: Reports no additional cardiovascular complaints Gastrointestinal: Gastrointestinal: Reports no additional gastrointestinal complaints Exam Const: General: alert and other (On 2 L of oxygen via NC) HENMT: Head: normal to inspection Objective Data Vital Signs Vital Signs: Vital Signs - 24 hr 11/17/20 14:00 11/17/20 22:00 11/18/20 06:00 Temperature 97.4 F L 97 F L 97.9 F Pulse Rate 77 93 71 Respiratory Rate 20 16 18 Blood Pressure 109/67 106/66 112/72 Pulse Oximetry 96 96 96 Intake/Output Intake/Output: Intake & Output 11/15/20 11/16/20 11/17/20 11/18/20 23:59 23:59 23:59 23:59 Intake Total 1190 2230 400 Output Total 300 Balance 890 2230 400 Meds/Results Medications: Active Medications Generic Name Dose Route Start Last Admin Trade Name Freq PRN Reason Stop Dose Admin Albuterol 2 puff 11/14/20 02:00 11/18/20 02:30 Albuterol Sulfate (*Sp) Aerosol 1 Puff INHALATION 2 puff Q6HRT ERIC Administration Albuterol 2 puff 11/14/20 00:42 Albuterol Sulfate (*Sp) Aerosol 1 Puff INHALATION Q6HRT PRN Shortness Of Breath Dexamethasone Sodium Phosphate 6 mg 11/14/20 09:00 11/17/20 08:31 Dexamethasone Sod Phos Inj 4 Mg/Ml Vial IV PUSH 11/23/20 09:01 6 mg DAILY ERIC Administration Doxazosin Mesylate 4 mg 11/14/20 18:00 11/17/20 17:34 Doxazosin Mesylate 4 Mg Tablet PO 4 mg 1800 ERIC Administration Enoxaparin Sodium 75 mg 11/13/20 23:55 11/17/20 21:28 Enoxaparin 80 Mg/0.8 Ml Syringe SUB-Q 75 mg Q12HR ERIC Administration Guaifenesin 1,200 mg 11/14/20 21:00 11/17/20 21:29 Guaifenesin 12 Hr 600 Mg Tabcr PO 1,200 mg Q12HR ERIC Administration Remdesivir 100 mg in 250 mls @ 250 mls/hr 11/15/20 22:00 11/17/20 22:28 IVPB 11/18/20 22:59 Infused Q24H ERIC Infusion Radiology Results: ITS Impressions Chest X-Ray 11/13/20 22:10 Impression: 1: Patchy bilateral airspace disease, compatible with pneumonia. Chest CTA 11/13/20 22:48 IMPRESSION: 1. Extensive patchy bilateral airspace consolidation involving all lobes, compatible with pneumonia. 2: No large central pulmonary embolism. Evaluation of peripheral pulmonary arteries limited by motion. 3: Mediastinal lymphadenopathy, likely reactive. Labs Labs: Laboratory Results - last 24 hr 11/18/20 11/18/20 05:54 05:54 WBC 8.8 RBC 4.21 L Hgb 11.9 L Hct 35.5 L MCV 84.3 MCH 28.3 MCHC 33.5 RDW 13.4 Plt Count 314 MPV 9.5 Immature Gran % (Auto) 4.1 H Neut % (Auto) 59.8 Lymph % (Auto) 26.8 Beadle % (Auto) 7.8 Eos % (Auto) 1.2 Baso % (Auto) 0.3 Lymph # (Auto) 2.37 [place]eadle # (Auto) 0.7 H Eos # (Auto) 0.1 Baso # (Auto) 0.0 Abs Immat Gran (auto) 0.36 H Absolute Neuts (auto) 5.3 Absolute Nucleated RBC 0.0 Nucleated RBC % 0.0 Sodium 138 Potassium 3.4 Chloride 107 Carbon Dioxide 27 Anion Gap 4 L BUN 22 H Creatinine 0.80 Estim Creat Clear Calc 80 Estimated GFR > 60 Glucose 112 H Calcium 7.5 L ALT 132 H Quality VTE Prophylaxis VTE prophylaxis: pharmacologic ordered
[2020-11-18] MEDS: guaiFENesin 12 HR 600 MG TABCR 1200 MG PO ×2 (08:42→21:25)
[2020-11-18] MEDS: ENOXAPARIN 80 MG/0.8 ML SYRINGE 75 MG SUB-Q ×2 (08:42→21:25)
[2020-11-18] MEDS: DEXAMETHASONE SOD PHOS INJ 4 MG/ML VIAL 6 MG IV PUSH (08:42)
--- NOTE | 2020-11-18 13:09 | PM.IMPN ---
Progress Note: A&P Assessment and Plan (1) Pneumonia due to 2019-nCoV: Code(s): U07.1 - COVID-19; J12.82 - Pneumonia due to coronavirus disease 2019 Status: Acute Assessment and Plan: On Remdesivir and Dexamethasone Incentive spirometry Improved On room air Supportive care Continue to monitor liver function test (2) Hypoxemia: Code(s): R09.02 - Hypoxemia Status: Acute Assessment and Plan: Resolved On room air currently (3) Leukocytosis: Qualifiers: Leukocytosis type: unspecified Qualified Code(s): D72.829 - Elevated white blood cell count, unspecified Code(s): D72.829 - Elevated white blood cell count, unspecified Status: Acute Assessment and Plan: Resolved (4) Chronic anemia: Code(s): D64.9 - Anemia, unspecified Status: Acute Assessment and Plan: Stable Follow-up in the outpatient setting (5) Abnormal glucose: Code(s): R73.09 - Other abnormal glucose Status: Acute Assessment and Plan: Likely secondary to systemic steroids Insulin sliding scale as needed Subjective Date/time seen: 11/18/20 13:09 I feel fine Review of Systems Review of Systems: Narrative: Patient presented to the emergency room after he was positive with COVID-19 he was having general malaise, fatigue, fever, chills. Constitutional: Comments: Rigors, chills, fevers. Cardiovascular: Comments: No chest pain ,no PND ,no orthopnea ,no leg swelling. Respiratory: Comments: No cough or sputum production, no shortness of breath Gastrointestinal: Comments: No nausea ,no vomiting ,no abdominal pain, no diarrhea. Musculoskeletal: Comments: No muscle pain, or joint pain Integumentary/Breasts: Comments: No rashes. Neurologic: Comments: No sensorimotor deficit Exam Narrative: Exam Narrative: Patient is sitting on chair, stands and ambulates in the room. Const: General: comfortable, no acute distress, alert, awake and Physically active Nutritional Appearance: average body habitus Orientation/consciousness: patient oriented x3 HENMT: Head: normal to inspection and normocephalic Ears: hearing grossly normal bilaterally General nose exam: Normal external nose present Face and sinus: normal facial exam Mouth: Yes Normal oral and palatal mucosa present Eyes: General: appearance normal, both eyes and all related structures Pupils: Equal, round and reactive pupils present EOM: EOMs intact bilaterally Neck: Neck: no lymphadenopathy, supple and no JVD Lymphatic: no lymphadenopathy noted Resp: Effort & Inspection: normal respiratory effort and able to speak in complete sentences Auscultation: clear to auscultation bilaterally Cardio: Jugular venous distension: no JVD Rate: regular rate Rhythm: regular rhythm GI: GI Palp: Yes Soft to palpation and Yes No hepatosplenomegaly present Skin: Rashes: no rashes Neuro: General: patient oriented x3 and CN's II-XI intact bilaterally Cranial nerves: Yes CN's II-XII intact bilaterally and Yes Equal, round and reactive pupils present Cognition (Neuro): normal cognition Speech: normal speech Gait exam (Neuro): Normal gait present Motor exam (neuro): 5/5 motor strength present throughout Extrem: General: no pedal edema Objective Data Vital Signs Vital Signs: Vital Signs - 24 hr 11/17/20 14:00 11/17/20 22:00 11/18/20 06:00 Temperature 97.4 F L 97 F L 97.9 F Pulse Rate 77 93 71 Respiratory Rate 20 16 18 Blood Pressure 109/67 106/66 112/72 Pulse Oximetry 96 96 96 Intake/Output Intake/Output: Intake & Output 11/15/20 11/16/20 11/17/20 11/18/20 23:59 23:59 23:59 23:59 Intake Total 1190 2230 760 Output Total 300 Balance 890 2230 760 Meds/Results Medications: Active Medications Generic Name Dose Route Start Last Admin Trade Name Freq PRN Reason Stop Dose Admin Albuterol 2 puff 11/14/20 02:00 11/18/20 09:06 Albuterol Sulfate (*Sp) Aerosol 1 Puff INHALATION
[2020-11-18 14:00] VITALS: BP 110/62; PULSE 94; RESP 20; TEMP 36.1; O2SAT 96
[2020-11-18] MEDS: DOXAZOSIN MESYLATE 4 MG TABLET PO (17:13)
[2020-11-18 20:43] VITALS: O2SAT 95
[2020-11-18] MEDS: REMDESIVIR 100 MG/NS 250 ML 100 MG/250 ML BAG 250 MG IVPB (21:25)
[2020-11-18 22:00] VITALS: BP 115/70; PULSE 81; RESP 20; TEMP 37.4; O2SAT 96
[2020-11-18 23:04] VITALS: TEMP 37.3
[2020-11-19] MEDS: ALBUTEROL SULFATE (*SP) AEROSOL 1 PUFF 2 PUFF INHALATION ×4 (03:00→21:17)
[2020-11-19 06:00] VITALS: BP 117/71; PULSE 74; RESP 20; TEMP 36.7; O2SAT 96
[2020-11-19] MEDS: guaiFENesin 12 HR 600 MG TABCR 1200 MG PO ×2 (08:10→21:17)
[2020-11-19] MEDS: DEXAMETHASONE SOD PHOS INJ 4 MG/ML VIAL 6 MG IV PUSH (08:11)
[2020-11-19] MEDS: ENOXAPARIN 80 MG/0.8 ML SYRINGE 75 MG SUB-Q ×2 (08:11→21:17)
[2020-11-19 14:00] VITALS: BP 104/64; PULSE 97; RESP 18; TEMP 37; O2SAT 96
--- NOTE | 2020-11-19 15:45 | PM.IMPN ---
Progress Note: A&P Assessment and Plan (1) Pneumonia due to 2019-nCoV: Code(s): U07.1 - COVID-19; J12.82 - Pneumonia due to coronavirus disease 2019 Status: Acute Assessment and Plan: Will complete 10 franco of Remdesivir and Dexamethasone. (2) Hypoxemia: Code(s): R09.02 - Hypoxemia Status: Acute Assessment and Plan: resolved in room air (3) Leukocytosis: Qualifiers: Leukocytosis type: unspecified Qualified Code(s): D72.829 - Elevated white blood cell count, unspecified Code(s): D72.829 - Elevated white blood cell count, unspecified Status: Acute Assessment and Plan: resolved (4) Chronic anemia: Code(s): D64.9 - Anemia, unspecified Status: Acute Assessment and Plan: follow-up in the outpatient setting (5) Abnormal glucose: Code(s): R73.09 - Other abnormal glucose Status: Acute Assessment and Plan: likely secondary to the use of systemic steroids insulin sliding scale as needed Subjective Date/time seen: 11/19/20 15:45 I feel so much better, my appetite has improved. Review of Systems Review of Systems: Narrative: patient denies any issues at this time. Exam Const: General: comfortable, no acute distress, well developed, alert and awake Nutritional Appearance: average body habitus Orientation/consciousness: patient oriented x3 HENMT: Head: normal to inspection, normocephalic and atraumatic Ears: hearing grossly normal bilaterally Face and sinus: normal facial exam Eyes: General: appearance normal, both eyes and all related structures Pupils: Equal, round and reactive pupils present EOM: EOMs intact bilaterally Neck: Neck: full ROM, no lymphadenopathy and no JVD Thyroid: thyroid normal Lymphatic: no lymphadenopathy noted Resp: Effort & Inspection: normal respiratory effort and able to speak in complete sentences Auscultation: clear to auscultation bilaterally Cardio: Jugular venous distension: no JVD Rate: regular rate Rhythm: regular rhythm Heart sounds: S1 normal heart sound present and S2 normal heart sound present GI: GI Palp: Yes Soft to palpation and Yes No hepatosplenomegaly present : General: Yes deferred Skin: Rashes: no rashes Wounds: no wounds Neuro: General: patient oriented x3 and CN's II-XI intact bilaterally Cranial nerves: Yes CN's II-XII intact bilaterally and Yes Equal, round and reactive pupils present Cognition (Neuro): normal cognition Speech: normal speech Gait exam (Neuro): Normal gait present Motor exam (neuro): 5/5 motor strength present throughout Extrem: General: normal to inspection, full ROM, no joint enlargement and no pedal edema Objective Data Vital Signs Vital Signs: Vital Signs - 24 hr 11/18/20 20:43 11/18/20 22:00 11/18/20 23:04 Temperature 99.4 F 99.2 F Pulse Rate 81 Respiratory Rate 20 Blood Pressure 115/70 Pulse Oximetry 95 96 11/19/20 06:00 Temperature 98.1 F Pulse Rate 74 Respiratory Rate 20 Blood Pressure 117/71 Pulse Oximetry 96 Intake/Output Intake/Output: Intake & Output 11/16/20 11/17/20 11/18/20 11/19/20 23:59 23:59 23:59 23:59 Intake Total 1190 2230 1360 740 Output Total 300 Balance 890 2230 1360 740 Meds/Results Medications: Active Medications Generic Name Dose Route Start Last Admin Trade Name Freq PRN Reason Stop Dose Admin Albuterol 2 puff 11/14/20 02:00 11/19/20 14:54 Albuterol Sulfate (*Sp) Aerosol 1 Puff INHALATION 2 puff Q6HRT ERIC Administration Albuterol 2 puff 11/14/20 00:42 Albuterol Sulfate (*Sp) Aerosol 1 Puff INHALATION Q6HRT PRN Shortness Of Breath Dexamethasone Sodium Phosphate 6 mg 11/14/20 09:00 11/19/20 08:11 Dexamethasone Sod Phos Inj 4 Mg/Ml Vial IV PUSH 11/23/20 09:01 6 mg DAILY ERIC Administration Doxazosin Mesylate 4 mg 11/14/20 18:00 11/18/20 17:13 Doxazosin Mesylate 4 Mg Tablet PO 4 mg 1800 [facility] Administr
[2020-11-19] MEDS: DOXAZOSIN MESYLATE 4 MG TABLET PO (17:26)
[2020-11-19 21:35] VITALS: BP 120/68; PULSE 77; RESP 20; TEMP 36.8; O2SAT 97
[2020-11-20 06:00] VITALS: BP 114/75; PULSE 72; RESP 20; TEMP 36.7; O2SAT 98
[2020-11-20 06:11] LABS: Basophils Percent Auto 0.3 % (0.2-1.2); Eosinophils Absolute Auto 0.1 K/mm3 (0-0.3); Eosinophils Percent Auto 0.6 % (0-4.4); Hematocrit 36.2 % (42.0-52.0); Hemoglobin 12.1 g/dL (14.0-18.0); Immature Granulocyte Absolute 0.25 K/mm3 (0.00-0.031); Immature Granulocyte Percent A 2.4 % (0-0.5); Lymphocytes Absolute Auto 2.14 K/mm3 (0.9-3.2); Lymphocytes Percent Auto 20.9 % (18.3-44.2); Mean Corpuscular HGB Conc 33.4 g/dl (32-36); Mean Corpuscular Hemoglobin 27.8 pg (26-34); Monocytes Absolute Auto 0.6 K/mm3 (0.1-0.6); Monocytes Percent Auto 5.9 % (2.6-8.5); Neutrophils Absolute Auto 7.2 K/mm3 (1.3-6.7); Neutrophils Percent Auto 69.9 % (45.5-73.1); Platelet Count Result 314 k/mm3 (150-375); Red Blood Count 4.36 M/mm3 (4.6-6.20); Red Cell Distribution Width 13.6 % (11.5-14.5); White Blood Count 10.2 K/mm3 (4.5-10.0)
[2020-11-20 06:24] LABS: Potassium 3.9 mmol/L (3.4-5.0)
[2020-11-20 06:41] LABS: Alanine Aminotransferase 106 U/L (4-50); Albumin Level 3.1 g/dL (3.5-5.1); Alkaline Phosphatase 63 U/L (38-126); Anion Gap 2 mmol/L (8-16); Aspartate Amino Transferase 36 U/L (17-59); Bilirubin,Total 0.6 mg/dL (0.2-1.3); Blood Urea Nitrogen 20 mg/dL (9-20); Calcium 8.2 mg/dL (8.4-10.2); Carbon Dioxide 29 mmol/L (22-30); Chloride 107 mmol/L (98-107); Estimated CRCL calculation 65 ml/min; Estimated Glomerular Filt Rate > 60; Glucose 89 mg/dL (75-110); Sodium 138 mmol/L (137-145)
[2020-11-20] MEDS: guaiFENesin 12 HR 600 MG TABCR 1200 MG PO ×2 (08:05→20:19)
[2020-11-20] MEDS: DEXAMETHASONE SOD PHOS INJ 4 MG/ML VIAL 6 MG IV PUSH (08:06)
[2020-11-20] MEDS: ENOXAPARIN 80 MG/0.8 ML SYRINGE 75 MG SUB-Q ×2 (08:06→20:19)
[2020-11-20] MEDS: ALBUTEROL SULFATE (*SP) AEROSOL 1 PUFF 2 PUFF INHALATION ×3 (08:07→22:18)
[2020-11-20 14:00] VITALS: BP 107/60; PULSE 79; RESP 16; TEMP 36.3; O2SAT 98
[2020-11-20] MEDS: DOXAZOSIN MESYLATE 4 MG TABLET PO (17:15)
--- NOTE | 2020-11-20 18:01 | PM.IMPN ---
Progress Note: A&P Assessment and Plan (1) Pneumonia due to 2019-nCoV: Code(s): U07.1 - COVID-19; J12.82 - Pneumonia due to coronavirus disease 2019 Status: Acute Assessment and Plan: has completed course of the Remdesivir continue Dexamethasone (2) Hypoxemia: Code(s): R09.02 - Hypoxemia Status: Acute Assessment and Plan: resolved on room air (3) Leukocytosis: Qualifiers: Leukocytosis type: unspecified Qualified Code(s): D72.829 - Elevated white blood cell count, unspecified Code(s): D72.829 - Elevated white blood cell count, unspecified Status: Acute Assessment and Plan: resolved (4) Chronic anemia: Code(s): D64.9 - Anemia, unspecified Status: Acute Assessment and Plan: follow-up in the outpatient setting (5) Abnormal glucose: Code(s): R73.09 - Other abnormal glucose Status: Acute Assessment and Plan: likely secondary to systemic steroids Subjective Date/time seen: 11/20/20 18:01 and feeling much better my appetite has increased Review of Systems Review of Systems: Narrative: patient states that his feeling fine his appetite is much improved and he feels much better no complaints at this moment Exam Const: General: comfortable, no acute distress, well developed, alert and awake Nutritional Appearance: average body habitus Orientation/consciousness: patient oriented x3 HENMT: Head: normal to inspection, normocephalic and atraumatic Ears: hearing grossly normal bilaterally Face and sinus: normal facial exam Eyes: General: appearance normal, both eyes and all related structures Pupils: Equal, round and reactive pupils present EOM: EOMs intact bilaterally Neck: Neck: full ROM, no lymphadenopathy and no JVD Thyroid: thyroid normal Lymphatic: no lymphadenopathy noted Resp: Effort & Inspection: normal respiratory effort and able to speak in complete sentences Auscultation: clear to auscultation bilaterally Cardio: Jugular venous distension: no JVD Rate: regular rate Rhythm: regular rhythm Heart sounds: S1 normal heart sound present and S2 normal heart sound present GI: GI Palp: Yes Soft to palpation and Yes No hepatosplenomegaly present : General: Yes deferred Skin: Rashes: no rashes Wounds: no wounds Neuro: General: patient oriented x3 and CN's II-XI intact bilaterally Cranial nerves: Yes CN's II-XII intact bilaterally and Yes Equal, round and reactive pupils present Cognition (Neuro): normal cognition Speech: normal speech Gait exam (Neuro): Normal gait present Motor exam (neuro): 5/5 motor strength present throughout Extrem: General: normal to inspection, full ROM, no joint enlargement and no pedal edema Objective Data Vital Signs Vital Signs: Vital Signs - 24 hr 11/19/20 21:35 11/20/20 06:00 11/20/20 14:00 Temperature 98.2 F 98.1 F 97.3 F L Pulse Rate 77 72 79 Respiratory Rate 20 20 16 Blood Pressure 120/68 114/75 107/60 Pulse Oximetry 97 98 98 Intake/Output Intake/Output: Intake & Output 11/17/20 11/18/20 11/19/20 11/20/20 23:59 23:59 23:59 23:59 Intake Total 2230 1360 1979 1949 Balance 2230 1360 1979 1949 Meds/Results Medications: Active Medications Generic Name Dose Route Start Last Admin Trade Name Freq PRN Reason Stop Dose Admin Albuterol 2 puff 11/14/20 02:00 11/20/20 17:15 Albuterol Sulfate (*Sp) Aerosol 1 Puff INHALATION 2 puff Q6HRT ERIC Administration Albuterol 2 puff 11/14/20 00:42 Albuterol Sulfate (*Sp) Aerosol 1 Puff INHALATION Q6HRT PRN Shortness Of Breath Dexamethasone Sodium Phosphate 6 mg 11/14/20 09:00 11/20/20 08:06 Dexamethasone Sod Phos Inj 4 Mg/Ml Vial IV PUSH 11/23/20 09:01 6 mg DAILY ERIC Administration Doxazosin Mesylate 4 mg 11/14/20 18:00 11/20/20 17:15 Doxazosin Mesylate 4 Mg Tablet PO 4 mg 1800 ERIC Administration Enoxaparin Sodium 75 mg 11/13/20 23:55 11/20/20
[2020-11-20 20:00] VITALS: O2SAT 99
[2020-11-20 22:00] VITALS: BP 108/70; PULSE 85; RESP 18; TEMP 36.6; O2SAT 97
[2020-11-21] MEDS: ALBUTEROL SULFATE (*SP) AEROSOL 1 PUFF 2 PUFF INHALATION ×2 (03:05→08:28)
[2020-11-21 06:00] VITALS: BP 115/71; PULSE 73; RESP 16; TEMP 36.6; O2SAT 96
[2020-11-21] MEDS: DEXAMETHASONE SOD PHOS INJ 4 MG/ML VIAL 6 MG IV PUSH (08:28)
[2020-11-21] MEDS: guaiFENesin 12 HR 600 MG TABCR 1200 MG PO (08:29)
[2020-11-21] MEDS: ENOXAPARIN 80 MG/0.8 ML SYRINGE 75 MG SUB-Q (08:29)
--- NOTE | 2020-11-30 20:10 | PM.DS ---
DS: Admitting Diagnosis Admitting Diagnosis Admitting Diagnosis: (1) Pneumonia due to 2019-nCoV: (2) Hypoxemia: . (3) Leukocytosis: (4) Anemia: (5) Abnormal glucose: DS: Discharge Diagnosis Discharge Diagnosis (1) Pneumonia due to 2019-nCoV: Code(s): U07.1 - COVID-19; J12.82 - Pneumonia due to coronavirus disease 2019 Status: Acute Assessment and Plan: Patient treated with Remdesivir and Dexamethasone Breathing treatments (2) Hypoxemia: Code(s): R09.02 - Hypoxemia Status: Acute Assessment and Plan: Resolved. (3) Leukocytosis: Qualifiers: Leukocytosis type: unspecified Qualified Code(s): D72.829 - Elevated white blood cell count, unspecified Code(s): D72.829 - Elevated white blood cell count, unspecified Status: Acute Assessment and Plan: Resolved (4) Chronic anemia: Code(s): D64.9 - Anemia, unspecified Status: Acute Assessment and Plan: Will follow up in the outpatient setting. DS: Summary Hospital Course Reason for hospitalization: SOB Hospital Course: This a 60 yo male with PMHx significant for chronic anemia, presented to ED due to sob, his had been positive for Covid and his children as well he also tested positive he presented to ED due to sob, chills, generalized malaise. He was found to have lung infiltrates and low Oxygen saturation was admitted to the hospital for further management and treatment. He was successfully weaned off of oxygen. No events. Was treated with Remdesivir and Dexamethasone. Consults: None Procedures:None Time Spent with Patient Time attestation: Total time spent providing and/or coordinating discharge services: Exam Const: General: comfortable, no acute distress, well developed, alert and awake Nutritional Appearance: average body habitus Orientation/consciousness: patient oriented x3 HENMT: Head: normal to inspection, normocephalic and atraumatic Ears: hearing grossly normal bilaterally Face and sinus: normal facial exam Eyes: General: appearance normal, both eyes and all related structures Pupils: Equal, round and reactive pupils present EOM: EOMs intact bilaterally Neck: Neck: full ROM, no lymphadenopathy and no JVD Thyroid: thyroid normal Lymphatic: no lymphadenopathy noted Resp: Effort & Inspection: normal respiratory effort and able to speak in complete sentences Auscultation: clear to auscultation bilaterally Cardio: Jugular venous distension: no JVD Rate: regular rate Rhythm: regular rhythm Heart sounds: S1 normal heart sound present and S2 normal heart sound present GI: GI Palp: Yes Soft to palpation and Yes No hepatosplenomegaly present : General: Yes deferred Skin: Rashes: no rashes Wounds: no wounds Neuro: General: patient oriented x3 and CN's II-XI intact bilaterally Cranial nerves: Yes CN's II-XII intact bilaterally and Yes Equal, round and reactive pupils present Cognition (Neuro): normal cognition Speech: normal speech Gait exam (Neuro): Normal gait present Motor exam (neuro): 5/5 motor strength present throughout Extrem: General: normal to inspection, full ROM, no joint enlargement and no pedal edema DS: Data Data Completed and Pending Completed studies during hospitalization: XR chest 1V portable 11/13/2020 22:03 Indication: Covid positive. Shortness of breath. Procedure: AP portable chest Comparison: No prior studies for comparison. Findings: There is patchy bilateral airspace disease, compatible with pneumonia. No significant effusion. Heart size normal. No pneumothorax. No acute osseous abnormality. Impression: 1: Patchy bilateral airspace disease, compatible with pneumonia. EXAMINATION: CTA chest PE protocol DATE: 11/13/2020 22:49 [employer] INDICATION: Covid positive. Dyspnea. TECHNIQUE: Computed tomographic angiography (CTA) of the chest was performed with 100 mL Omnipaque-350 intravenous contr
== END 2020-11-21 10:55 | disposition home or self-care (01) | DRG 137 ==
LOC: ANHED 23:37 → ANH3MEDSUR 23:54
PROVIDERS: Internal Medicine; Admitting Provider Family Medicine; Emergency Provider Emergency Medicine; Visit Provider Internal Medicine
DX: U07.1 COVID-19 (principal); J12.82 Pneumonia due to coronavirus disease 2019; R09.02 Hypoxemia; D64.9 Anemia, unspecified
CPT/HCPCS: 36415; 36600; 71045; 71275; 80048; 80053; 80076; 82565; 82728; 82805; 83036; 83605; 83880; 84145; 84460; 84484; 85025; 85380; 93005; 94640; 96361; 96365; 96372; 96374; 96375; 99285; A9270; G0378; G0379; J1100; J1650; J7030; Q9967

== ENCOUNTER 2025-02-07 14:46 | Outpatient (CLI) | payer OTHER, SELFPAY ==
--- NOTE | ~2025-02-07 | US_ITS ---
US scrotum doppler INDICATION: Right testicular lump TECHNIQUE: Testicular sonogram utilizing grayscale and color Doppler FINDINGS: The testes are normal in size and appearance. No focal lesions are seen. The right testes measures 3.3 x 2.9 x 1.7 cm centimeters, and the left testis measures 3.6 x 1.6 x 2.7 cm cm. There is normal vascular flow to both testes. The right and left epididymides appear normal. There is no varicocele or hydrocele. IMPRESSION: 1. NORMAL TESTICULAR ULTRASOUND. Reviewed, dictated and finalized at location A.
--- OUTSIDE RECORDS SUMMARY | 2025-02-07 14:50 | XMS_ITS | Referral Summary ---
Author Organization [facility] Address [address] [place] [phone] Care Team Providers Care Finishing Area Supervisor Name Role Phone Campbell Moss MD Primary Care Provider [phone] Encounters Date Type Department Care Team Description 02/04/2025 Results Follow-Up [facility] Medical [facility] Family Medicine at [address] [phone] Campbell Moss MD CBC with auto differential, Comprehensive metabolic panel, Lipid panel, Additional followed-up results: 3 01/30/2025 Telephone [facility] Medical [facility] Family Medicine at [address] [place] [phone] Campbell Moss MD Medical Question/Miscellaneous 01/13/2025 Telephone [facility] Family Medicine at [address] [place] [phone] Campbell Moss MD Medical Question/Miscellaneous 01/07/2025 1:15 PM CDT Office Visit [facility] Medical [facility] Family Medicine at [address] [place] [phone] Campbell Moss MD Dyspepsia (Primary Dx); Benign prostatic hyperplasia with lower urinary tract symptoms, symptom details unspecified; Acute recurrent pansinusitis; Encounter for annual health examination; Screening for prostate cancer; Testicular lump from Last 3 Months Allergies No known active allergies Medications doxazosin (CARDURA) 4 mg tabletIndications :Benign prostatic hyperplasia with lower urinary tract symptoms, symptom details unspecified Take 1 tablet (4 mg total) by mouth nightly 90 tablet 3 5 01/08/20 26 Active finasteride (PROSCAR) 5 mg tabletIndications :Benign prostatic hyperplasia with lower urinary tract symptoms, symptom details unspecified Take 1 tablet (5 mg total) by mouth daily 90 tablet 3 5 01/08/20 26 Active omeprazole (PriLOSEC) 20 mg capsuleIndication s:Dyspepsia Take 1 capsule (20 mg total) by mouth 2 (two) times a day 180 capsule 1 5 07/06/20 25 Active fluticasone propionate (FLONASE) 50 mcg/actuation nasal sprayIndications: Acute recurrent pansinusitis Administer 2 sprays into each nostril daily 1 each 5 5 07/06/20 25 Active fexofenadine (ARSLAN) 180 mg tabletIndications :Acute recurrent pansinusitis Take 1 tablet (180 mg total) by mouth daily as needed (allergies) 90 tablet 3 5 01/08/20 26 Active Active Problems Problem Noted Date Diagnosed Date Dyspepsia 01/07/2025 Overview (01/07/2025): chronic. Controlled. CPM. Acute recurrent pansinusitis 01/07/2025 Chronic pain of both shoulders 08/31/2021 Assessment & Plan (09/01/2021 2:33 PM SHORER): Overall Condition Chronic Condition: Uncontrolled. Treatment: New Medication: nsaid and Referral: pt Follow up in 6 months Benign prostatic hyperplasia with lower urinary tract symptoms 10/27/2020 Assessment & Plan (10/27/2020 7:55 AM SHORER): Overall Condition Chronic Condition: Uncontrolled and worsening. Treatment: New Medication: Start Avodart and Referral: Urologist Follow up in 6 months Dupuytren contracture 10/27/2020 Assessment & Plan (10/27/2020 7:56 AM SHORER): Overall Condition: New Diagnosis Treatment: Referral: Observation. Consider Ortho Referral in future if symptoms worsen. Follow up PRN Immunizations Immunization Administration Dates Next Due Influenza, Quadrivalent, Spl it, Preservative Free, Intramuscular 07/22/2021 Influenza, Unspecified 11/23/2023(Deferr ed: Patient decision),05/10/2023(Deferred: Patient decision),05/05/2022(Deferred: Patient decision) Tdap 12/14/2021 Social History Tobacco Use Types Packs/Day Years Used Date Smoking Tobacco: Never Smokeless Tobacco: Never Tobacco Cessation:Counseling Given: Not Answered AUDIT-C Answer Date Recorded Q1: How often do you have a drink containing alcohol? Never 01/07/2025 Q2: How many drinks containi ng alcohol do you have on a typical day when you are drinking? Patient does not drink Q3: How often do you have si x or more drinks on one occasion? 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 Not on file Not on file Last Filed Vital Signs Vital Sign Reading Time Taken Comments Blood Pressure 102/60 01/07/2025 1:14 PM CDT Pulse 60 01/07/2025 1:14 PM CDT Temperature 36.4 C (97.6 F) 01/07/2025 1:14 PM CDT Respiratory Rate 16 01/07/2025 1:14 PM CDT Oxygen Saturation 96% 01/07/2025 1:14 PM CDT Inhaled Oxygen Concentration - - Weight 70.9 kg (156 lb 6.4 oz) 01/07/2025 1:14 P M CDT Height 167.6 cm (5' 6) 01/07/2025 1:14 PM CDT Body Mass Index 25.24 01/07/2025 1:14 PM CDT Plan of Treatment Not on file Procedures Procedure Name Priority Date/Time Associated Diagnosis Comments HEMOGLOBIN A1C Routine 02/03/2025 12:50 PM CDT Encounter for annual health examination TSH Routine 02/03/2025 12:50 PM CDT Encounter for annual health examination LIPID PANEL Routine 02/03/2025 12:50 PM CDT Encounter for annual health examination COMPREHENSIVE METABOLIC PANEL Routine 02/03/2025 12:50 PM CDT Encounter for annual health examination CBC WITH AUTO DIFFERENTIAL Routine 02/03/2025 12:50 PM CDT Encounter for annual health examination PSA SCREEN Routine 02/03/2025 12:48 PM CDT Encounter for annual health examination Screening for prostate cancer COLONOSCOPY Routine 12/02/2020 from Last 3 Months or Most Recently Relevant to Health Maintenance Results * (ABNORMAL) CBC with auto differential (02/03/2025 12:50 PM CDT) WBC 5.8 3.8 - 10.8 Thousand/u L [facility] RBC, POC 4.53 4.20 - 5.80 Million/uL [facility] Hgb 13.0(L) 13.2 - 17.1 g/dL [facility] Hct 40.9 38.5 - 50.0 % [facility] MCV 90.3 80.0 - 100.0 fL [facility] MCH 28.7 27.0 - 33.0 pg [facility] MCHC 31.8(L) 32.0 - 36.0 g/dL [facility] Comment: For adults, a slight decrease in the calculated MCHC value (in the range of 30 to 32 g/dL) is most likely not clinically significant; however, it should be interpreted with caution in correlation with other red cell parameters and the patient's clinical condition. Rdw 12.4 11.0 - 15.0 % [facility] Platelets 200 140 - 400 Thousand/u L [facility] MPV 10.1 7.5 - 12.5 fL [facility] Neutrophils, abs 2,883 1,500 - 7,800 cells/uL [facility] Lymphocytes, abs 2,285 850 - 3,900 cells/uL [facility] Monocyte abs 476 200 - 950 cells/uL [facility] Eosinophils, abs 139 15 - 500 cells/uL [facility] Basophils, abs 17 0 - 200 cells/uL [facility] Neutrophils 49.7 % [facility] Lymphocyte pct 39.4 % [facility] Monocytes 8.2 % [facility] Eosinophils 2.4 % [facility] Basophils 0.3 % [facility] Blood 02/03/2025 12:5 0 PM CDT 02/03/2025 12:51 PM CDT Campbell Moss MD LAB BLOOD ORDERABLES Final Resul t Performing Organization Address [facility] Co de Phone Number [facility] [address] [place] [address] * TSH (02/03/2025 12:50 PM CDT) TSH 3.63 0.40 - 4.50 mIU/L [facility] Blood 02/03/2025 12:5 0 PM CDT 02/03/2025 12:51 PM CDT Campbell Moss MD LAB BLOOD ORDERABLES Final Resul t Performing Organization Address City/[facility]/ZIP Co de Phone Number [facility] [address] [place] [address] * Hemoglobin A1c (02/03/2025 12:50 PM CDT) Hgb A1C 5.6 <5.7 % of total Hgb [facility] Comment: For the purpose of screening for the presence of diabetes: <5.7% Consistent with the absence of diabetes 5.7-6.4% Consistent with increased risk for diabetes (prediabetes) > or =6.5% Consistent with diabetes This assay result is consistent with a decreased risk of diabetes. Currently, no consensus exists regarding use of hemoglobin A1c for diagnosis of diabetes in children. According to [place] Diabetes Association (ADA) guidelines, hemoglobin A1c <7.0% represents optimal control in non- diabetic patients. Different metrics may apply to specific patient populations. Standards of Medical Care in Diabetes(ADA). Blood 02/03/2025 12:5 0 PM CDT 02/03/2025 12:51 PM CDT us Campbell Moss MD LAB BLOOD ORDERABLES Final Resul t [facility] [address] [place] [address] * (ABNORMAL) Lipid panel (02/03/2025 12:50 PM CDT) Pathologist [facility] Cholesterol 174 <200 mg/dL [facility] HDL 52 > OR = 40 mg/dL [facility] Triglycerides 56 <150 mg/dL [facility] LDL 108(H) mg/dL (calc) [facility] Comment: Reference range: <100 Desirable range <100 mg/dL for primary prevention; <70 mg/dL for patients with CHD or diabetic patients with > or = 2 CHD risk factors. LDL-C is now calculated using the Diego-Dutch calculation, which is a validated novel method providing better accuracy than the Friedewald equation in the estimation of LDL-C. Diego MARINO et al. DARIELA. 2013;310(19): 1737-3749 (http://education.BECC.[employer]/faq/WPL747) Chol/HDL ratio 3.3 <5.0 (calc) [facility] Non-HDL, (LDL+VLDL) 122 <130 mg/dL (calc) [facility] Comment: For patients with diabetes plus 1 major ASCVD risk factor, treating to a non-HDL-C goal of <100 mg/dL (LDL-C of <70 mg/dL) is considered a therapeutic option. Blood 02/03/2025 12:5 0 PM CDT 02/03/2025 12:51 PM CDT us Campbell Moss MD LAB BLOOD ORDERABLES Final Resul t [facility] [address] [place] [address] * (ABNORMAL) Comprehensive metabolic panel (02/03/2025 12:50 PM CDT) Glucose 101(H) 65 - 99 mg/dL [facility] Comment: Fasting reference interval For someone without known diabetes, a glucose value between 100 and 125 mg/dL is consistent with prediabetes and should be confirmed with a follow-up test. BUN 18 7 - 25 mg/dL [facility] Creatinine 0.91 0.70 - 1.35 mg/dL [facility] eGFR 95 > OR = 60 mL/min/1.7 3m2 [facility] BUN/creat ratio SEE NOTE: 6 - 22 (calc) [facility] Comment: Not Reported: BUN and Creatinine are within reference range. Sodium 140 135 - 146 mmol/L [facility] Potassium, pl 4.2 3.5 - 5.3 mmol/L [facility] Chloride 106 98 - 110 mmol/L [facility] CO2 27 20 - 32 mmol/L [facility] Calcium 9.2 8.6 - 10.3 mg/dL [facility] Protein, sr 6.8 6.1 - 8.1 g/dL [facility] Albumin 4.3 3.6 - 5.1 g/dL [facility] GLOBULIN 2.5 1.9 - 3.7 g/dL (calc) [facility] Alb/glob ratio 1.7 1.0 - 2.5 (calc) [facility] Bilirubin, total 0.6 0.2 - 1.2 mg/dL [facility] Alk phos 63 35 - 144 U/L [facility] AST 15 10 - 35 U/L [facility] ALT (SGPT) 13 9 - 46 U/L [facility] Blood 02/03/2025 12:5 0 PM CDT 02/03/2025 12:51 PM CDT Campbell Moss MD LAB BLOOD ORDERABLES Final Resul t Performing Organization Address [facility] de Phone Number [facility] [address] [place] [address] * PSA screen (02/03/2025 12:48 PM CDT) PSA 1.73 < OR = 4.00 ng/mL [facility] Comment: The total PSA value from this assay system is standardized against the WHO standard. The test result will be approximately 20% lower when compared to the equimolar-standardized total PSA (Weston Balta). Comparison of serial PSA results should be interpreted with this fact in mind. This test was performed using the Siemens chemiluminescent method. Values obtained from different assay methods cannot be used interchangeably. PSA levels, regardless of value, should not be interpreted as absolute evidence of the presence or absence of disease. Blood 02/03/2025 12:4 8 PM CDT 02/03/2025 12:48 PM CDT Campbell Moss MD LAB BLOOD ORDERABLES Final Resul t Performing Organization Address [facility] de Phone Number [facility] [address] [place] [place] [address] * Colonoscopy (12/02/2020) Anatomical Region Laterality Modality Other Historical Provider ENDOSCOPY PROCEDURES Linda l Result from Last 3 Months or Most Recently Relevant to Health Maintenance Additional Health Concerns Infection Onset Date Last Indicated COVID19 Comment:11/04/20 POSITIVE 12/02/2020 12/01/2020 Insurance [facility] Care Teams Finishing Area Supervisor Relationship Specialty Start Date End Date Campbell Moss MD PCP - General Family Medicine 10/26/20
--- OUTSIDE RECORDS SUMMARY | 2025-02-07 14:50 | XMS_ITS | Clinical Summary ---
Author Organization [facility] Address [address] [place] [address] Phone Care Team Providers Care Ultrasound Technician Name Role Phone Ashlee Song MD Unavailable [phone] Campbell Moss MD Primary Care Provider [phone] Social History Tobacco Use Types Packs/Day Years Used Date Smoking Tobacco: Never Assessed Sex and Gender Information Value Date Recorded Sex Assigned at Not on file Legal Sex Male 10:01 AM CDT Gender Identity Not on file Sexual Orientation Not on file Plan of Treatment Upcoming Encounters Date Type Department Care Team (Late st Contact Info) Description 04/02/2025 11:00 AM CDT Office Visit [facility] [address] [place] [address] Sabino Galindo MD [address] [address] Insurance MEDICAID [facility] PL[facility] Care Teams Ultrasound Technician Relationship Specialty Start Date End Date Campbell Moss MD [address] [address] PCP - General Primary Care 01/31/25 Ashlee Song MD [address] [facility] [address] [place] [address] Consulting Physician Urology 01/31/25
--- OUTSIDE RECORDS SUMMARY | 2025-02-07 14:50 | XMS_ITS | Encounter Summary ---
Author Organization [facility] Healthcare Address [address] [place] [address] Care Team Providers Care Director Of Officiating Name Role Phone Campbell Moss MD Primary Care Provider [phone] Reason for Visit * Reason Onset Date Comments Medical Question/Miscellaneous 01/13/2025 Encounter Details Date Type Department Care Team (Late st Contact Info) Description 01/13/2025 Telephone [facility] Group Family Medicine at [address] [place] [phone] Campbell Moss MD [address] [place] [phone] Medical Question/Miscellaneous Social History Tobacco Use Types Packs/Day Years Used Date Smoking Tobacco: Never Smokeless Tobacco: Never AUDIT-C Answer Date Recorded Q1: How often [...] on file Legal Sex Male 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 Provided number [phone] as general number, but cannot verify fax number at this time. Please refax order for ultrasound Does message need to be routed? Yes-Action Needed * Telephone Encounter - Kalee Bro - 01/13/2025 3:04 PM CDT done * Telephone Encounter - Karen Jaeger MA - 01/13/2025 2:28 PM CDT Medical Question/Miscellaneous Caller???s Concern: Please fax ultrasound order to [phone] - [facility] Does message need to be routed? Yes-Action Needed documented in this encounter Plan of Treatment Not on file documented as of this encounter Visit Diagnoses Not on filedocumented in this encounter Additional Health Concerns Infection Onset Date Last Indicated Resolved Time COVID19 Comment:11/04/20 POSITIVE 12/02/2020 12/01/2020 documented as of this encounter Care Teams Director Of Officiating Relationship Specialty Start Date End Date Campbell Moss MD PCP - General Family Medicine 10/26/20 documented as of this encounter
--- OUTSIDE RECORDS SUMMARY | 2025-02-07 14:50 | XMS_ITS | Encounter Summary ---
Author Organization [facility] Healthcare Address [address] [place] [address] Care Team Providers Care Desilverizer Name Role Phone Campbell Moss MD Primary Care Provider [phone] Encounter Details Date Type Department Care Team (Late st Contact Info) Description 02/04/2025 Results Follow-Up [facility] Family Medicine at [address] [phone] Campbell Moss MD [address] [place] [id number] CBC with auto differential, Comprehensive metabolic panel, Lipid panel, Additional followed-up results: 3 Social History Tobacco Use Types Packs/Day Years [...] on file Legal Sex Male 11:29 AM LADLE WATCHER Gender Identity Not on file Sexual Orientation Not on file 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
--- OUTSIDE RECORDS SUMMARY | 2025-02-07 14:50 | XMS_ITS | Clinical Summary ---
Author Organization [facility] Building Address [address] [place] [address] Care Team Providers Care Disc Jockey Name Role Phone Campbell Moss MD Primary Care Provider [phone] Allergies No known active allergies Medications doxazosin [...] 08/31/2021 Assessment & Plan (09/01/2021 2:33 PM POTATO SPOTTER): Overall Condition Chronic Condition: Uncontrolled. Treatment: New Medication: nsaid and Referral: pt Follow up in 6 months Benign prostatic hyperplasia with lower urinary tract symptoms 10/27/2020 Assessment & Plan (10/27/2020 7:55 AM POTATO SPOTTER): Overall Condition Chronic Condition: Uncontrolled and worsening. Treatment: New Medication: Start Avodart and Referral: Urologist Follow up in 6 months Dupuytren contracture 10/27/2020 Assessment & Plan (10/27/2020 7:56 AM POTATO SPOTTER): Overall Condition: New Diagnosis Treatment: Referral: Observation. Consider Ortho Referral in future if symptoms worsen. Follow up PRN Encounters Date Type Department Care Team Description 02/04/2025 Results Follow-Up [facility] Medical [facility] Family Medicine at [address] [place] [phone] Campbell Moss MD CBC with auto differential, Comprehensive metabolic panel, Lipid panel, Additional followed-up results: 3 01/30/2025 Telephone [facility] Family Medicine at [address] [place] [phone] Campbell Moss MD Medical Question/Miscellaneous 01/13/2025 Telephone [facility] Family Medicine at [address] [place] [phone] Campbell Moss MD Medical Question/Miscellaneous 01/07/2025 1:15 PM CDT Office Visit [facility] Family Medicine at [address] [place] [phone] Campbell Moss MD Dyspepsia (Primary Dx); Benign prostatic hyperplasia with lower urinary tract symptoms, symptom details unspecified; Acute recurrent pansinusitis; Encounter for annual health examination; Screening for prostate cancer; Testicular lump from Last 3 Months Immunizations Immunization Administration Dates Next Due Influenza, Quadrivalent, Spl it, Preservative Free, Intramuscular 07/22/2021 Influenza, Unspecified 11/23/2023(Deferr ed: Patient decision),05/10/2023(Deferred: Patient decision),05/05/2022(Deferred: Patient decision) Tdap 12/14/2021 Surgical History Surgery Date Site/Laterality Comments TONSILLECTOMY Medical History Medical History Date Comments Urinary incontinence Anxiety Family History Medical History Relation Name Comments Bladder Cancer Father Hypertension Mother Cancer Other sibling breast Relation Name Status Comments Daughter 1 Alive Daughter 2 Alive Father Mother Alive Other sibling Alive Son 1 Alive Son 2 Alive Social History Tobacco Use Types Packs/Day Years [...] on file Legal Sex Male 11:29 AM POTATO SPOTTER Gender Identity Not on file Sexual Orientation Not on file 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 Not on file Obstetrics History Last Filed Vital Signs Vital Sign Reading [...] 01/07/2025 1:14 PM CDT Plan of Treatment Health Maintenance Due Date Last Done Comments Hepatitis C Screening 1962 Hepatitis B Screening 1980 Zoster Vaccine (1 of 2) 2012 Covid-19 Vaccine ( season) 2024 08/05/2021, 12/31/2020, 12/08/2020 Depression Screening 05/02/2025 05/02/2024, 05/02/2024, 02/24/2023, Additional history exists Regular Well Visit/Exam 18-64 05/02/2025 05/02/2024, 02/24/2023, 10/26/2020 Influenza Vaccine (Season Ended) 2025 07/22/2021 Prostate Cancer Screening-PSA 02/03/2027 02/03/2025, 03/13/2024, 09/26/2023, Additional history exists Colon Cancer Screening-Colonoscopy 12/02/2030 12/02/2020, 12/02/2020 DTaP/Tdap/Td Vaccine (2 - Td or Tdap) 12/15/2031 12/14/2021 Pneumococcal vaccine <65 Aged Out No longer eligible based on patient's age to complete this topic Procedures Procedure Name Priority Date/Time Associated Diagnosis [...] Resul t Performing Organization Address [facility] de Phone Number [facility] [address] [place] [address] * TSH (02/03/2025 12:50 PM CDT) TSH 3.63 0.40 - 4.50 mIU/L [facility] Blood 02/03/2025 12:5 0 PM CDT 02/03/2025 12:51 PM CDT Campbell Moss MD LAB BLOOD ORDERABLES Final Resul t Performing Organization Address [facility] de Phone Number [facility] [address] [place] [address] * Hemoglobin A1c (02/03/2025 12:50 PM CDT) Pathologist [facility] Hgb A1C 5.6 <5.7 % of total Hgb [facility] Comment: For the purpose of screening for the presence of diabetes: <5.7% Consistent with the absence of diabetes 5.7-6.4% Consistent with increased risk for diabetes (prediabetes) > or =6.5% Consistent with diabetes This assay result is consistent with a decreased risk of diabetes. Currently, no consensus exists regarding use of hemoglobin A1c for diagnosis of diabetes in children. According to [place] Diabetes Association (ADA) guidelines, hemoglobin A1c <7.0% represents optimal control in non- diabetic patients. Different metrics may apply to specific patient populations. Standards of Medical Care in Diabetes(ADA). Blood 02/03/2025 12:5 0 PM CDT 02/03/2025 12:51 PM CDT us Campbell Moss MD LAB BLOOD ORDERABLES Final Resul t [facility] [address] [place] [address] * (ABNORMAL) Lipid panel (02/03/2025 12:50 PM CDT) Cholesterol 174 <200 mg/dL [facility] [...] factors. LDL-C is now calculated using the Jordon calculation, which is a validated novel method providing better accuracy than the Friedewald equation in the estimation of LDL-C. Diego SS et al. DARIELA. 2013;310(19): 9113-9775 (http://education.[employer]/faq/LUA798) Chol/HDL ratio 3.3 <5.0 (calc) [facility] [...] ORDERABLES Final Resul t Performing Organization Address City/[facility]/ZIP Co de Phone Number [facility] [address] [place] [address] * (ABNORMAL) Comprehensive metabolic panel (02/03/2025 12:50 [...] BLOOD ORDERABLES Final Resul t [facility] [address] [place] [address] * PSA screen (02/03/2025 12:48 PM CDT) PSA 1.73 < OR = 4.00 ng/mL [facility] Comment: The total PSA value from this assay system is standardized against the WHO standard. The test result will be approximately 20% lower when compared to the equimolar-standardized total PSA ([place]). Comparison of serial PSA results should be [...] LAB BLOOD ORDERABLES Final Resul t [facility] [address] [place] [address] * Colonoscopy (12/02/2020) Anatomical Region Laterality Modality Other Historical Provider ENDOSCOPY PROCEDURES Linda l Result from Last 3 Months or Most Recently Relevant to Health Maintenance Additional Health Concerns Infection Onset Date Last Indicated COVID19 Comment:11/04/20 POSITIVE 12/02/2020 12/01/2020 Insurance [facility] Care Teams Disc Jockey Relationship Specialty Start Date End Date Campbell Moss MD PCP - General Family Medicine 10/26/20
== END 2025-02-07 14:47 | disposition home or self-care (01) ==
PROVIDERS: Visit Provider Family Medicine
DX: N50.89 Other specified disorders of the male genital organs (principal)
CPT/HCPCS: 76870; 93976